=== PATIENT | female | born 1955 | race Caucasian/White ===

== ENCOUNTER 2021-06-12 12:34 | Outpatient (CLI) | payer OTHER | END 2021-06-12 12:35 | disposition home or self-care (01) | LOC: DTY/OP 12:34 | PROVIDERS: ATTEND Surgery | DX: E78.5 Hyperlipidemia, unspecified (principal); I10 Essential (primary) hypertension; R73.9 Hyperglycemia, unspecified; M89.49 Other hypertrophic osteoarthropathy, multiple sites; Z68.37 Body mass index [BMI] 37.0-37.9, adult; Z71.3 Dietary counseling and surveillance | CPT/HCPCS: 97802 ==